=== PATIENT | female | born 1980 ===

== ENCOUNTER 2021-07-24 15:59 | Outpatient (RCR) | payer OTHER | END 2021-07-29 | LOC: PT 15:59 | PROVIDERS: ATTEND Neurological Surgery | DX: M51.16 Intervertebral disc disorders with radiculopathy, lumbar region (principal); M62.81 Muscle weakness (generalized); M54.50 Low back pain, unspecified; R26.2 Difficulty in walking, not elsewhere classified; R29.3 Abnormal posture ==

== ENCOUNTER 2021-08-08 16:00 | Outpatient (RCR) | payer OTHER | END 2021-08-28 | LOC: PT 16:00 | PROVIDERS: ATTEND Neurological Surgery | DX: M51.16 Intervertebral disc disorders with radiculopathy, lumbar region (principal); M54.50 Low back pain, unspecified; M62.81 Muscle weakness (generalized); R26.2 Difficulty in walking, not elsewhere classified; R29.3 Abnormal posture ==